=== PATIENT | female | born 1970 | race Caucasian/White ===

== ENCOUNTER → 2018-01-14 | Outpatient (CLI) | payer BC ==
--- NOTE | 2018-01-14 12:08 | US ---
EXAMINATION TYPE: US abdomen complete DATE OF EXAM: 01/14/2018 COMPARISON: NONE CLINICAL HISTORY: R10.13 EPIGASTRIC PAIN. Epigastric pain, NPO EXAM MEASUREMENTS: Liver Length: 14.7 cm Gallbladder Wall: 0.2 cm CBD: 0.5 cm CHD: 0.3 cm Spleen: 7.6 cm Right Kidney: 10.5 x 5.2 x 3.2 cm Left Kidney: 10.3 x 4.3 x 4.5 cm Pancreas: wnl Liver: Two cystic lesions seen. Right- 2.3 x 2.2 x 1.8 cm. Left- 1.7 x 1.3 x 0.9 cm Gallbladder: wnl Evidence for sonographic Greene's sign: neg CBD: wnl Spleen: wnl Right Kidney: wnl Left Kidney: Mildly prominent renal pelvis versus small peripelvic renal cysts. No hydronephrosis. Upper IVC: wnl Abd Aorta: wnl The intrahepatic portion of the IVC and proximal abdominal aorta are within normal limits. There is no evidence of cholelithiasis. Common bile duct is unremarkable. The visualized portions of the marie creas are homogenous. The spleen is unremarkable. Kidneys are symmetric and free of hydronephrosis. IMPRESSION: 1. No sonographic evidence of cholelithiasis or acute cholecystitis. 2. Cystic appearing hepatic lesions favored to be benign.
== END | disposition home or self-care (01) ==
LOC: RADUSWWP 10:34
PROVIDERS: ATTEND Family Medicine
DX: K76.9 Liver disease, unspecified (principal); R10.13 Epigastric pain
CPT/HCPCS: 76700